=== PATIENT | male | born 1950 | race Caucasian/White ===

== ENCOUNTER → 2016-10-08 | Outpatient (CLI) | payer MEDICARE, OTHER ==
[~2016-10-08] MED LIST: CENTRUM SILVER1 CTB PO; COLON HEALTH; COLON HERBAL CL1 CAP PO; COZAAR 50MG50 MG/TAB PO; DESYREL 50MG50 MG PO; DOMPERIDONE10 MG/CAP PO; Domperidone PO; EXCEDRIN1 TAB PO; FLAGYL500 MG PO; LEVAQUIN 750MG750 M1 PO; LIPITOR20 MG PO; MELATONIN5 M1 PO; MIRAPEX0.25 MG PO; MOBIC 7.5MG7.5 MG PO; MULTIPLE VITAMI1 TA5 PO; NEXIUM 40MG40 MG PO; NORCO 325 MG-51 TAB PO; OCUVITE1 TA1 PO; REGLAN 10MG10 MG/TAB PO; TYLENOL 500MG500 MG PO; ULTRAM 50MG TAB50 MG PO
[2016-10-08 08:28] LABS: CALCIUM 9.6 mg/dL (8.4-10.2); CREATININE, serum 1.46 mg/dL (0.66-1.25); POTASSIUM 4.5 mmol/L (3.4-5.0)
== END ==
LOC: COL.RAD 07:05
PROVIDERS: Urology
DX: Z85.520 Personal history of malignant carcinoid tumor of kidney (principal); Z90.5 Acquired absence of kidney
CPT/HCPCS: Q9967

== ENCOUNTER → 2017-04-04 | Outpatient (CLI) | payer MEDICARE, OTHER ==
[~2017-04-04] MED LIST changes: +DEXILANT60 MG PO; +FERROUS SU325 MG/TAB PO; +FOLIC ACID 40400 MCG PO; +MOMETASONE NAS; +VITAMIN C500 MG PO; +[UNRECOGNIZED DRUG - OTHER] NAS
[2017-04-04 10:22] LABS: CREATININE, serum 1.49 mg/dL (0.66-1.25)
[2017-04-04 10:54] LABS: PSA-TOTAL 2.97 ng/mL (0-4)
== END ==
LOC: COL.RAD 09:18
PROVIDERS: Urology
DX: C64.9 Malignant neoplasm of unspecified kidney, except renal pelvis (principal); N28.1 Cyst of kidney, acquired; N40.0 Benign prostatic hyperplasia without lower urinary tract symptoms; Z85.520 Personal history of malignant carcinoid tumor of kidney; Z90.5 Acquired absence of kidney
CPT/HCPCS: G0103; Q9967

== ENCOUNTER 2017-05-10 09:49 | Inpatient (IN) | payer MEDICARE, OTHER ==
[~2017-05-10] VITALS: Ht 162.6 cm; Wt 77.3 kg
[~2017-05-10 09:49] MED LIST changes: -DEXILANT60 MG PO; -FERROUS SU325 MG/TAB PO; -FOLIC ACID 40400 MCG PO; -MOMETASONE NAS; -REGLAN 10MG10 MG/TAB PO; -ULTRAM 50MG TAB50 MG PO; -VITAMIN C500 MG PO; -[UNRECOGNIZED DRUG - OTHER] NAS
[2017-06-20] MEDS ORDERED: ULTRAM 50MG TAB50 MG PO (10:00)
[2017-06-20] MEDS ORDERED: REGLAN 10MG10 MG/TAB PO (10:11)
[2017-06-21] VITALS (14 sets, daily range): BP systolic 90–153; BP diastolic 51–89; PULSE 50–109; TEMP 97–98.6
[2017-06-21] MEDS ORDERED: DEXILANT60 MG PO (03:31)
[2017-06-21] MEDS ORDERED: FOLIC ACID 40400 MCG PO (05:50)
[2017-06-21] MEDS ORDERED: FERROUS SU325 MG/TAB PO (05:50)
[2017-06-21] MEDS ORDERED: VITAMIN C500 MG PO (05:51)
[2017-06-21] MEDS ORDERED: MOMETASONE NAS (06:02)
[2017-06-21] MEDS ORDERED: [UNRECOGNIZED DRUG - OTHER] NAS (06:02)
[2017-06-22 03:32] VITALS: BP 95/59; PULSE 86; TEMP 98.1
[2017-06-22 04:22] LABS: HEMATOCRIT 30.7 % (42.0-52.0); HEMOGLOBIN 10.3 g/dl (13.5-18.0)
[2017-06-22 08:15] VITALS: BP 109/62; PULSE 71; TEMP 98.1
[2017-06-22 11:47] VITALS: BP 106/82; PULSE 93; TEMP 98.4
[2017-06-22 16:19] VITALS: BP 121/71; PULSE 99; TEMP 98.5
[2017-06-22 19:30] VITALS: BP 120/82; PULSE 68; TEMP 98.1
[2017-06-23 00:10] VITALS: BP 99/67; PULSE 113; TEMP 98.8
[2017-06-23 03:30] VITALS: BP 133/71; PULSE 101; TEMP 98.3
[2017-06-23 07:32] LABS: HEMATOCRIT 33.5 % (42.0-52.0); HEMOGLOBIN 11.2 g/dl (13.5-18.0)
[2017-06-23 08:02] VITALS: BP 134/85; PULSE 110; TEMP 98.5
[2017-06-23 12:19] VITALS: BP 130/78; PULSE 111; TEMP 98.8
== END 2017-06-23 14:15 | disposition home or self-care (01) | DRG 470 ==
LOC: JCC 06-21 05:07
PROVIDERS: Orthopaedic Surgery
PROC: 0SRB0JA Replacement of Left Hip Joint with Synthetic Substitute, Uncemented, Open Approach (ICD-10-PCS; principal; 2017-06-21 07:30)
DX: M16.12 Unilateral primary osteoarthritis, left hip (principal); Z85.528 Personal history of other malignant neoplasm of kidney
CPT/HCPCS: A4315; A9284; C1713; C1776; J0690; J1100; J2250; J2270; J2405; J2704; J3010; J7120

== ENCOUNTER → 2017-05-30 | Outpatient (CLI) | payer MEDICARE, OTHER ==
[~2017-05-30] MED LIST changes: +DEXILANT60 MG PO; +FERROUS SU325 MG/TAB PO; +FOLIC ACID 40400 MCG PO; +MOMETASONE NAS; +REGLAN 10MG10 MG/TAB PO; +ULTRAM 50MG TAB50 MG PO; +VITAMIN C500 MG PO; +[UNRECOGNIZED DRUG - OTHER] NAS
[2017-05-30 14:57] LABS: HIV 1/2 Antibodies Non-Reactive; HIV-1p24 Antigen Non-Reactive
== END ==
LOC: COL.LAB 13:39
PROVIDERS: Orthopaedic Surgery
DX: Z01.812 Encounter for preprocedural laboratory examination (principal); M16.9 Osteoarthritis of hip, unspecified

== ENCOUNTER 2019-01-20 21:42 | Inpatient (IN) | payer MEDICARE, OTHER ==
[~2019-01-20] VITALS: Ht 165.1 cm; Wt 77.4 kg
[2019-01-20 22:08] LABS: BASO # 0.1 (0.0-0.2); BASO % 0.5 % (0.0-2.0); EOS # 0.3 (0.0-0.7); EOS % 2.3 % (0-4.0); GRAN # 9.8 (1.4-6.5); GRAN % 77.4 % (42.2-75.2); HEMATOCRIT 41.6 % (42.0-52.0); LYMPH # 1.4 (1.2-3.4); LYMPH % 11.2 % (20.0-51.0); MEAN CELL VOLUME 95 fl (80.0-100.0); MEAN CORPUSCULAR HEMOGLOBIN 32 pg (27.0-31.0); MEAN CORPUSCULAR HGB CONC 34 g/dl (33.0-37.0); MEAN PLATELET VOLUME 9.1 fl (7.4-10.4); MONO % 8.2 % (1.7-9.3); PLATELET COUNT 253 K/mm3 (130-400); RED BLOOD COUNT 4.39 M/mm3 (4.20-5.60); REDCELL DISTRIBUTION WIDTH-CV 13.4 % (11.5-14.5)
[2019-01-20 22:16] LABS: PROTHROMBIN TIME 11.1 SECONDS (9.7-12.8)
[2019-01-20 22:18] LABS: ALANINE AMINOTRANSFERASE 28 U/L (21-72); ALBUMIN 4.3 gm/dL (3.5-5.0); ALKALINE PHOSPHATASE 101 U/L (50-136); ANION GAP 10 mmol/L (7-16); AST,SGOT 35 U/L (15-37); BILIRUBIN,TOTAL 0.4 mg/dL (0.0-1.0); BLOOD UREA NITROGEN 33 mg/dL (9-20); CALCIUM 9.4 mg/dL (8.4-10.2); CARBON DIOXIDE 27 mmol/L (22-30); CHLORIDE 102 mmol/L (98-107); CREATININE, serum 1.52 (0.66-1.25); GLUCOSE 113 mg/dL (74-106); LIPASE 85 U/L (23-300); POTASSIUM 4.6 mmol/L (3.4-5.0); SODIUM 138 mmol/L (137-145); TOTAL PROTEIN 7.5 gm/dL (6.4-8.2)
[2019-01-20 22:31] LABS: TROPONIN-I < 0.012 ng/mL (0.000-0.035)
[2019-01-20 23:42] LABS: C-REACTIVE PROTEIN 0.5 mg/dL (0.0-0.9)
[2019-01-21 03:27] VITALS: BP 116/78; PULSE 97; TEMP 97.9
--- NOTE | 2019-01-21 03:44 | NUR ---
PT ADMITTED TO FLOOR AT THIS TIME. INSTRUCTED ACCOUNTS PAYABLE LEAD LIGHT. AMBULATED TO BATHROOM WELL WITHOUT ASSITANCE, STEADY ON FEET.
--- NOTE | 2019-01-21 06:54 | NUR ---
PT HAS BEEN LAYING IN BED SINCE ADMISSION. NO ISSUES OR CONSERNS VOICED.
[2019-01-21 07:49] LABS: BASO % 0.4 % (0.0-2.0); EOS # 0.1 (0.0-0.7); EOS % 1.4 % (0-4.0); GRAN # 5.8 (1.4-6.5); GRAN % 74.4 % (42.2-75.2); HEMATOCRIT 37.7 % (42.0-52.0); HEMOGLOBIN 12.5 g/dl (13.5-18.0); LYMPH % 12.7 % (20.0-51.0); MEAN CELL VOLUME 95 fl (80.0-100.0); MEAN CORPUSCULAR HEMOGLOBIN 32 pg (27.0-31.0); MEAN CORPUSCULAR HGB CONC 33 g/dl (33.0-37.0); MONO # 0.8 (0.1-0.6); MONO % 10.8 % (1.7-9.3); PLATELET COUNT 208 K/mm3 (130-400); RED BLOOD COUNT 3.95 M/mm3 (4.20-5.60); REDCELL DISTRIBUTION WIDTH-CV 13.7 % (11.5-14.5)
[2019-01-21 07:58] LABS: CALCIUM 8.7 mg/dL (8.4-10.2); CHOLESTEROL RISK RATIO 2.4; CREATININE, serum 1.38 (0.66-1.25); POTASSIUM 4.3 mmol/L (3.4-5.0)
--- NOTE | 2019-01-21 08:29 | NUR ---
Pt is awake an A/Ox4, resting in bed. He states he is having 2-3/10 pain in his chest. States the pain gets worse with inspiration. Saline lock to right AC is free of complications. Pt is up as tolerated in room. Pt denies any other needs.
[2019-01-21 08:31] VITALS: BP 114/84; PULSE 63; TEMP 97.7
--- NOTE | 2019-01-21 10:38 | NUR ---
Pt is sleeping soundly in bed.
[2019-01-21 13:12] VITALS: BP 124/85; PULSE 103; TEMP 97.8
[2019-01-21 16:08] VITALS: BP 127/78; PULSE 104; TEMP 98.5
--- NOTE | 2019-01-21 16:52 | NUR ---
Pt has had an overall uneventful shift. He continues to report 2-3/10 to his chest. Denies needing any pain medication for this. Updated on plan of care, including scheduled lexiscan for AM; expressed understanding. Denies any other needs.
[2019-01-21 19:12] VITALS: BP 115/80; PULSE 96; TEMP 98.3
--- NOTE | 2019-01-21 19:15 | NUR ---
Patient resting in bed, c/o chest pain 11/12, this has been continuous all day. Will given tramadol, pt would like to try this. Alert and oriented x4. Assessment ocmpleted- lungs clear, abdominal sounds active, pulses +3, cap refill >3 seconds, independent in room. No other needs at this time.
[2019-01-21 23:29] VITALS: BP 121/83; PULSE 95; TEMP 98
[2019-01-22] VITALS (10 sets, daily range): BP systolic 97–135; BP diastolic 67–88; PULSE 89–111; TEMP 97.8–98.6
--- NOTE | 2019-01-22 05:56 | NUR ---
Pt slept most of the night, chest pain rated at 2/10 all night, was relieved by tramadol given at beginning of shift. VSS. No needs at this time.
[2019-01-22 06:21] LABS: BASO % 0.6 % (0.0-2.0); EOS # 0.2 (0.0-0.7); EOS % 2.5 % (0-4.0); GRAN % 62.8 % (42.2-75.2); HEMATOCRIT 39.4 % (42.0-52.0); HEMOGLOBIN 13.1 g/dl (13.5-18.0); LYMPH # 1.6 (1.2-3.4); LYMPH % 24.3 % (20.0-51.0); MEAN CELL VOLUME 94 fl (80.0-100.0); MEAN CORPUSCULAR HEMOGLOBIN 31 pg (27.0-31.0); MEAN CORPUSCULAR HGB CONC 33 g/dl (33.0-37.0); MONO # 0.6 (0.1-0.6); MONO % 9.5 % (1.7-9.3); PLATELET COUNT 220 K/mm3 (130-400); RED BLOOD COUNT 4.19 M/mm3 (4.20-5.60); REDCELL DISTRIBUTION WIDTH-CV 13.4 % (11.5-14.5)
[2019-01-22 06:36] LABS: CALCIUM 9.5 mg/dL (8.4-10.2); CREATININE, serum 1.34 (0.66-1.25); POTASSIUM 4.1 mmol/L (3.4-5.0)
--- NOTE | 2019-01-22 07:26 | NUR ---
report given to EYAL Green. Pt has no needs at this time.
--- NOTE | 2019-01-22 07:30 | NUR ---
Patient is resting in bed, awake and alert. Denies having pain right now and does state to nursing that he is having his stress test and understands what will happen during test. Did take morning medications with a small sip of water. No other needs verbalized. Call light is within reach.
--- NOTE | 2019-01-22 09:53 | NUR ---
Patient is currently having cardiac stress test at this time.
--- NOTE | 2019-01-22 10:32 | NUR ---
Patient has returned from stress test. Reqests to take a shower, INT site wrapped, can independently shower. Will notify staff when done so tele can be re initiated.
--- NOTE | 2019-01-22 11:56 | NUR ---
TYLER met with the patient to discuss discharge plan. The patient lives in [place] with his , David. He reports independence with ADLs and has a cane and walker. The patient's PCP is Dr. Lilo Go and he receives his medications at the [facility]. He reports no difficulties obtaining his meds. The patient does not have advanced directives in EMR, but he states that his PCP's office should have a copy. SW contacted his PCP's office and requested a copy. The patient plans to return home with his upon discharge. No additional needs at this time.
--- NOTE | 2019-01-22 17:27 | NUR ---
Patient is resting in bed, had PRN ultram earlier due to complaint of headache. Did state pain has improved. Denies any further needs. Call light is within reach.
--- NOTE | 2019-01-22 21:15 | NUR ---
Pt resting in bed watching TV, no C/O pain at this time, shift assessments complete, left Pt call light in reach, bed in lowest position.
[2019-01-23] VITALS (16 sets, daily range): BP systolic 104–129; BP diastolic 69–89; PULSE 87–105; TEMP 97.3–97.8
[2019-01-23 03:58] LABS: HEMATOCRIT 41.9 % (42.0-52.0); HEMOGLOBIN 14.2 g/dl (13.5-18.0); MEAN CELL VOLUME 93 fl (80.0-100.0); MEAN CORPUSCULAR HEMOGLOBIN 32 pg (27.0-31.0); MEAN CORPUSCULAR HGB CONC 34 g/dl (33.0-37.0); PLATELET COUNT 253 K/mm3 (130-400); RED BLOOD COUNT 4.51 M/mm3 (4.20-5.60); REDCELL DISTRIBUTION WIDTH-CV 13.4 % (11.5-14.5)
[2019-01-23 04:05] LABS: PROTHROMBIN TIME 11.5 SECONDS (9.7-12.8)
[2019-01-23 04:10] LABS: CALCIUM 9.8 mg/dL (8.4-10.2); CREATININE, serum 1.46 (0.66-1.25); PHOSPHOROUS 4.9 mg/dL (2.5-4.5); POTASSIUM 4.5 mmol/L (3.4-5.0)
--- NOTE | 2019-01-23 05:18 | NUR ---
Pt slept well during the night, Pt had a moment of tachycardia 200+ during the night, VS were WNL when checked shortly after, technician telecommunication systems physician notified.
--- NOTE | 2019-01-23 08:33 | NUR ---
Patient resting in bed with brother at bedside. Patient "slept ok" last night. Lung sounds clear throughout, heart sounds normal, pulses strong bilaterally. No edema noted. Bowel sounds present. Patient denies chest pain, dizziness, SOB, palpitations. Heart cath scheduled for 1315 this afternoon. Patient has been NPO since midnight. Consent signed. Patient verbalizes understanding of procedure. Call light within reach.
--- NOTE | 2019-01-23 12:41 | NUR ---
Initial visit; Patient thanked [employer]eder for stopping and offering God's blessings.
--- NOTE | 2019-01-23 15:00 | NUR ---
Patient down for heart cath procedure.
--- NOTE | 2019-01-23 15:28 | NUR ---
SEE MERGE REPORT FOR MEDICATION ADMINISTRATION AND INTRA/POST SEDATION ASSESSMENTS. ETCO2 CONNECTED BUT NOT UTILIZED PER WAX CUTTER.
--- NOTE | 2019-01-23 16:15 | NUR ---
Patient back from heart cath procedure. Flat time 4hrs. Rt femoral site is CDI with tegaderm covering. Slight redness on outer edges of tegaderm. Patient denies pain, tolerating liquids. Bed is flat, HOB at 15 degrees. Post op monitoring in place. Call light within reach.
--- NOTE | 2019-01-23 16:29 | NUR ---
Patient laying flat in bed, HOB at 15 degrees. Tolerating liquids. Denies pain. Pulses equal and strong. Flat time from 1614 to 2014. Rt femoral site is CDI, no hematoma.
--- NOTE | 2019-01-23 16:31 | NUR ---
Patient laying flat in bed. HOB at 15 degrees. Patient denies pain, site is CDI, no hematoma. Patient has no complaints. Call light within reach.
--- NOTE | 2019-01-23 18:12 | NUR ---
PATIENT IN BED, FLAT, HOB AT 10 DEGREES. PATIENT DENIES PAIN, RT FEMORAL SITE IS CDI, NO HEMATOMA, SOFT, TEGADERM IN PLACE. PULSES STRONG BILATERALLY. CALL LIGHT WITHIN REACH.
--- NOTE | 2019-01-23 19:24 | NUR ---
PATIENT LAYING IN BED, REPORT GIVEN TO EYAL DEL ROSARIO. RT FEMORAL SITE CDI, NO HEMATOMA. PATIENT HAS NO COMPLAINTS OF PAIN. CALL LIGHT WITHIN REACH. VSS.
--- NOTE | 2019-01-23 19:54 | NUR ---
Patient resting in bed, flat time until 2014. Assessment completed- lungs clear, abdominal sounds active, pulses +3, cap refill <3 seconds, denies pain. Right femoral site C/D/I, VSS. No further needs at this time.
--- NOTE | 2019-01-23 20:20 | NUR ---
Flat time over for patient, pt now sitting up and eating dinner. Femoral site C/D/I, no complaints of pain, VSS.
[2019-01-24 00:03] VITALS: BP 95/68; PULSE 99; TEMP 98.3
[2019-01-24 00:04] VITALS: BP 95/68; PULSE 98
[2019-01-24 03:42] VITALS: BP 117/72; PULSE 88
--- NOTE | 2019-01-24 05:05 | NUR ---
Pt slept for most of the night, VSS. Some pain this morning after ambulating to restroom- controlled with tramadol. Right femoral site C/D/I. No needs at this time.
--- NOTE | 2019-01-24 06:22 | NUR ---
New iv site started on patient, new site to right forearm. Old iv site- outdated x3 days, removed from right ac.
--- NOTE | 2019-01-24 07:01 | NUR ---
Report given to EYAL Be.
[2019-01-24 07:27] VITALS: BP 121/88; PULSE 88; TEMP 98.5
[2019-01-24 08:23] LABS: BASO # 0.1 (0.0-0.2); BASO % 0.8 % (0.0-2.0); EOS # 0.2 (0.0-0.7); EOS % 3.3 % (0-4.0); GRAN # 4.3 (1.4-6.5); GRAN % 63.9 % (42.2-75.2); HEMOGLOBIN 13.9 g/dl (13.5-18.0); LYMPH # 1.5 (1.2-3.4); LYMPH % 23.1 % (20.0-51.0); MEAN CELL VOLUME 93 fl (80.0-100.0); MEAN CORPUSCULAR HEMOGLOBIN 32 pg (27.0-31.0); MEAN CORPUSCULAR HGB CONC 34 g/dl (33.0-37.0); MEAN PLATELET VOLUME 9.1 fl (7.4-10.4); MONO # 0.6 (0.1-0.6); MONO % 8.6 % (1.7-9.3); PLATELET COUNT 283 K/mm3 (130-400); RED BLOOD COUNT 4.41 M/mm3 (4.20-5.60); REDCELL DISTRIBUTION WIDTH-CV 13.2 % (11.5-14.5)
[2019-01-24 08:40] LABS: CALCIUM 9.5 mg/dL (8.4-10.2); CREATININE, serum 1.51 (0.66-1.25); POTASSIUM 4.3 mmol/L (3.4-5.0)
--- NOTE | 2019-01-24 09:30 | NUR ---
Patient laying in bed reading. Assessment complete. Lung sounds clear throughout, heart sounds normal. Bowel sounds present X4. Pulses strong bilaterally. No edema noted. Patient denies dizziness, SOB, palpitations. No N/V, tolerating foods well, "eating like a pig" per patient. Rt femoral site from heart cath is CDI, no redness, drainage or hematoma noted. Patient denies pain from site. Call light within reach.
[2019-01-24 11:06] VITALS: BP 114/89; PULSE 90; TEMP 97.9
[2019-01-24] MEDS ORDERED: COREG 6.256.25 MG/TA PO (14:10)
[2019-01-24] MEDS ORDERED: NITROSTAT0.4 MG/TAB SL (14:10)
[2019-01-24] MEDS ORDERED: ASPIRIN 81M81 MG/TA2 PO (14:10)
[2019-01-24] MEDS ORDERED: LASIX 20MG TABL20 MG PO (14:11)
[2019-01-24] MEDS ORDERED: K-TAB20 PO (14:11)
--- NOTE | 2019-01-24 16:33 | NUR ---
Patient has had an uneventful day. No complications with heart cath site. Site is CDI, no hematoma. Patient denies chest pain, SOB. Discharge instructions were reviewed. Femoral heart cath site care and limitation instructions reviewed and discussed. All questions answered. Patient was escorted out by this nurse. Brother drove him home. RFA IV discontinued. Catheter tip intact, no redness or drainage.
== END 2019-01-24 16:20 | disposition home or self-care (01) | DRG 287 ==
LOC: COL.ER 21:42 → MEDICAL 01-21 01:57
PROVIDERS: Emergency Medicine; Hospitalist; Nurse Practitioner; Physician Assistant; ADMIT Internal Medicine
PROC: B2111ZZ Fluoroscopy of Multiple Coronary Arteries using Low Osmolar Contrast (ICD-10-PCS; principal; 2019-01-23)
DX: I42.0 Dilated cardiomyopathy (principal); N17.9 Acute kidney failure, unspecified; I13.0 Hypertensive heart and chronic kidney disease with heart failure and stage 1 through stage 4 chronic kidney disease, or unspecified chronic kidney disease; I50.22 Chronic systolic (congestive) heart failure; N18.9 Chronic kidney disease, unspecified; E78.5 Hyperlipidemia, unspecified; Z85.520 Personal history of malignant carcinoid tumor of kidney; I95.9 Hypotension, unspecified; K31.84 Gastroparesis
CPT/HCPCS: 99232-AI; 99239; A9500; C1760; C1894; G0378; J1644; J2250; J3010; J7030; Q9967

== ENCOUNTER 2019-09-21 13:26 | Outpatient (RCR) | payer MEDICARE, OTHER ==
[~2019-09-21 13:26] MED LIST changes: +ASPIRIN 81M81 MG/TA2 PO; +COREG 6.256.25 MG/TA PO; +K-TAB20 PO; +LASIX 20MG TABL20 MG PO; +NITROSTAT0.4 MG/TAB SL
== END 2019-09-23 | disposition home or self-care (01) ==
LOC: COL.CR
DX: I50.9 Heart failure, unspecified (principal)

== ENCOUNTER 2019-10-08 14:14 | Outpatient (RCR) | payer MEDICARE, OTHER | END 2019-10-10 13:16 | disposition home or self-care (01) | LOC: COL.CR 14:14 | DX: I50.9 Heart failure, unspecified (principal) ==

== ENCOUNTER 2019-10-13 16:22 | Emergency (ER) | payer MEDICARE, OTHER ==
[~2019-10-13] VITALS: Ht 165.1 cm; Wt 84.1 kg
[2019-10-13 16:38] VITALS: BP 132/63; PULSE 65
[2019-10-13] MEDS ORDERED: NORCO 325 MG-51 TAB PO (18:56)
[2019-10-13 19:15] VITALS: TEMP 98.3
== END 2019-10-13 19:15 | disposition home or self-care (01) ==
LOC: COL.ER 16:22
DX: S20.211A Contusion of right front wall of thorax, initial encounter (principal); R40.2412 Glasgow coma scale score 13-15, at arrival to emergency department; Z79.82 Long term (current) use of aspirin; W00.0XXA Fall on same level due to ice and snow, initial encounter; Y92.009 Unspecified place in unspecified non-institutional (private) residence as the place of occurrence of the external cause

== ENCOUNTER 2019-12-12 11:59 | Outpatient (RCR) | payer SELFPAY | END 2020-01-08 | disposition still patient (30) | LOC: COL.CR | DX: Z02.89 Encounter for other administrative examinations (principal) ==

== ENCOUNTER 2020-09-12 07:44 | Day surgery (SDC) | payer MEDICARE, OTHER ==
[~2020-09-12] VITALS: Ht 165.1 cm; Wt 88.0 kg
[2020-09-12 08:17] VITALS: BP 122/76; PULSE 70; TEMP 97.6
--- NOTE | 2020-09-12 08:24 | NUR ---
RECEIVED FLEETS ENEMA AND TOLERATED WELL.
--- NOTE | 2020-09-12 08:28 | NUR ---
AMBULATED BACK TO BED. CALL LIGHT IN REACH
[2020-09-12] MEDS ORDERED: PROTONIX 40MG T40 MG PO (08:36)
[2020-09-12] MEDS ORDERED: colon health PO (08:37)
[2020-09-12] MEDS ORDERED: PROBIOTIC FORMU1 CAP PO (08:38)
[2020-09-12] MEDS ORDERED: OCUVITE1 TA1 PO (08:39)
[2020-09-12] MEDS ORDERED: CENTRUM SILVER1 CTB PO (08:39)
[2020-09-12] MEDS ORDERED: NATURAL IRON65 MG PO (08:43)
[2020-09-12] MEDS ORDERED: REGLAN 5MG T5 MG/TAB PO (08:44)
[2020-09-12] MEDS ORDERED: LASIX 20MG TABL20 MG PO (08:45)
[2020-09-12] MEDS ORDERED: COREG 6.256.25 MG/TA PO (08:46)
[2020-09-12] MEDS ORDERED: ASPIRIN 81M81 MG/TA2 PO (08:47)
[2020-09-12] MEDS ORDERED: NITROSTAT0.4 MG/TAB SL (08:47)
[2020-09-12] MEDS ORDERED: K-DUR20 MEQ PO (08:48)
[2020-09-12] MEDS ORDERED: MIRAPEX0.5 MG PO (08:51)
[2020-09-12] MEDS ORDERED: NORCO 325 MG-51 TAB PO (10:52)
[2020-09-12] MEDS ORDERED: LIDO2%JEL30 TOP (10:53)
[2020-09-12 11:22] VITALS: BP 126/74; PULSE 76; TEMP 97.1
--- NOTE | 2020-09-12 11:22 | NUR ---
TO RM 7 PER CART FROM PACU. ALERT ORIENTED X3, TALKING TO STAFF. DRINKING WATER. DENIES PAIN AND NAUSEA.
[2020-09-12 11:37] VITALS: BP 122/76; PULSE 61
--- NOTE | 2020-09-12 11:37 | NUR ---
RECEIVED CHOCOLATE PUDDING.
[2020-09-12 11:50] VITALS: BP 126/84; PULSE 81
--- NOTE | 2020-09-12 12:00 | NUR ---
AMBULATED TO BATHROOM. PACKING REMOVED AND RECEIVED SITZ BATH. QUARTER SIZED BLOODY SEDIMENT NOTED IN SITS BATH. NEW 4X4 PLACED OVER RECTUM AND MESH PANTIES PLACED.
--- NOTE | 2020-09-12 12:15 | NUR ---
VOIDED AND AMBULATED BACK TO .
--- NOTE | 2020-09-12 12:30 | NUR ---
RECEIVED DISCHARGE INSTRUCTIONS AND VERBALIZED UNDERSTANDING. DISCONTINUED IV AND INT- CATHETER INTACT PATIENT CALLED FOR RIDE HOME.
--- NOTE | 2020-09-12 12:50 | NUR ---
DISCHARGED PER WC BY NURSING STAFF TO PRIVATE CAR IN CARE OF
== END 2020-09-12 13:09 | disposition home or self-care (01) ==
LOC: SDCO 07:44
DX: K64.8 Other hemorrhoids (principal); K62.5 Hemorrhage of anus and rectum; Z79.82 Long term (current) use of aspirin; Z85.828 Personal history of other malignant neoplasm of skin; K21.9 Gastro-esophageal reflux disease without esophagitis; G47.33 Obstructive sleep apnea (adult) (pediatric); Z90.49 Acquired absence of other specified parts of digestive tract; Z96.642 Presence of left artificial hip joint; Z90.5 Acquired absence of kidney; Z88.1 Allergy status to other antibiotic agents; Z88.8 Allergy status to other drugs, medicaments and biological substances
CPT/HCPCS: J0690; J2405; J2704; J3010; J7030

== ENCOUNTER 2020-12-02 10:27 | Day surgery (SDC) | payer MEDICARE, OTHER ==
[~2020-12-02] VITALS: Ht 165.1 cm; Wt 88.5 kg
[~2020-12-02 10:27] MED LIST changes: +K-DUR20 MEQ PO; +LIDO2%JEL30 TOP; +MIRAPEX0.5 MG PO; +NATURAL IRON65 MG PO; +PROBIOTIC FORMU1 CAP PO; +PROTONIX 40MG T40 MG PO; +REGLAN 5MG T5 MG/TAB PO; +colon health PO
[2020-12-02 11:27] LABS: BASO # 0.1 (0.0-0.2); BASO % 0.9 % (0.0-2.0); EOS # 0.5 (0.0-0.7); EOS % 7.2 % (0-4.0); GRAN # 3.9 (1.4-6.5); GRAN % 58.4 % (42.2-75.2); HEMATOCRIT 40.4 % (42.0-52.0); HEMOGLOBIN 13.6 g/dl (13.5-18.0); LYMPH # 1.6 (1.2-3.4); LYMPH % 23.5 % (20.0-51.0); MEAN CELL VOLUME 92 fl (80.0-100.0); MEAN CORPUSCULAR HEMOGLOBIN 31 pg (27.0-31.0); MEAN CORPUSCULAR HGB CONC 34 g/dl (33.0-37.0); MEAN PLATELET VOLUME 8.5 fl (7.4-10.4); MONO # 0.6 (0.1-0.6); MONO % 9.1 % (1.7-9.3); PLATELET COUNT 279 K/mm3 (130-400); RED BLOOD COUNT 4.37 M/mm3 (4.20-5.60); REDCELL DISTRIBUTION WIDTH-CV 13.1 % (11.5-14.5)
[2020-12-02 11:32] VITALS: BP 136/73; PULSE 63; TEMP 98.4
[2020-12-02] MEDS ORDERED: GLUCOSAMIN 500 PO (11:56)
[2020-12-02 13:06] VITALS: BP 120/75; PULSE 67
--- NOTE | 2020-12-02 13:06 | NUR ---
Patient returns to room 5 per cart from surgery accompanied by Naya BIRCH and Jose ALVARADO. Patient is awake and alert. Temp 97.2 and room air sats 97%. Drinking orange juice. Denies pain. Gauze dressing to rectal area dry. IV fluids infusing and siderails up x2. Call light in reach.
[2020-12-02] MEDS ORDERED: LIDO2%JEL30 TOP (13:07)
[2020-12-02] MEDS ORDERED: NORCO 325 MG-51 TAB PO (13:07)
[2020-12-02 13:21] VITALS: BP 140/72; PULSE 65
--- NOTE | 2020-12-02 13:21 | NUR ---
Resting and denies pain or nausea.
[2020-12-02 13:36] VITALS: BP 125/63; PULSE 59
--- NOTE | 2020-12-02 13:36 | NUR ---
Assisted up to the bathroom and gait steady. Voids and returns to room.
[2020-12-02 13:51] VITALS: BP 127/80; PULSE 62
--- NOTE | 2020-12-02 13:51 | NUR ---
Sipping on juice. Continues to deny pain or nausea.
[2020-12-02 14:06] VITALS: BP 120/78; PULSE 63
--- NOTE | 2020-12-02 14:06 | NUR ---
Continues to rest and denies pain.
--- NOTE | 2020-12-02 14:15 | NUR ---
Assisted into the bathroom and does sitz bath. Packing removed.
--- NOTE | 2020-12-02 14:50 | NUR ---
Dismissal instructions given and voices understanding of these. IV discontinued and site is free of redness. Patient dresses self.
--- NOTE | 2020-12-02 14:55 | NUR ---
Patient dismissed to home driven by spouse and assisted into vehicle by this RN with instructions in hand.
== END 2020-12-02 14:57 | disposition home or self-care (01) ==
LOC: SDCO 10:27
PROVIDERS: Surgery
DX: K62.6 Ulcer of anus and rectum (principal); K64.8 Other hemorrhoids; K64.4 Residual hemorrhoidal skin tags; I11.0 Hypertensive heart disease with heart failure; I50.9 Heart failure, unspecified; G47.33 Obstructive sleep apnea (adult) (pediatric); K21.9 Gastro-esophageal reflux disease without esophagitis; E78.00 Pure hypercholesterolemia, unspecified; D64.9 Anemia, unspecified; Z20.822 Contact with and (suspected) exposure to COVID-19; G25.81 Restless legs syndrome; I08.0 Rheumatic disorders of both mitral and aortic valves; Z79.82 Long term (current) use of aspirin; Z85.828 Personal history of other malignant neoplasm of skin; Z79.899 Other long term (current) drug therapy; Z85.528 Personal history of other malignant neoplasm of kidney; Z90.5 Acquired absence of kidney; E78.5 Hyperlipidemia, unspecified
CPT/HCPCS: J2704; J3010; J7120

== ENCOUNTER → 2021-04-14 | Outpatient (CLI) | payer MEDICARE, OTHER ==
[~2021-04-14] MED LIST changes: +GLUCOSAMIN 500 PO
== END ==
LOC: COL.RAD 04-13 08:15
DX: Z85.528 Personal history of other malignant neoplasm of kidney (principal); Z90.5 Acquired absence of kidney

== ENCOUNTER → 2022-04-19 | Outpatient (CLI) | payer MEDICARE, OTHER | LOC: COL.RAD 06:46 | DX: Z85.528 Personal history of other malignant neoplasm of kidney (principal); Z90.5 Acquired absence of kidney | CPT/HCPCS: Q9967 ==

== ENCOUNTER 2023-08-03 14:04 | Outpatient (CLI) | payer MEDICARE, OTHER ==
[~2023-08-03] VITALS: Ht 165.1 cm; Wt 88.1 kg
[2023-08-03 14:09] LABS: BASO # 0.1 K/mm3 (0.0-0.2); BASO % 1.2 % (0.0-2.0); EOS # 0.8 K/mm3 (0.0-0.7); EOS % 10.4 % (0.0-4.0); GRAN # 4.2 K/mm3 (1.4-6.5); GRAN % 55.3 % (42.2-75.2); HEMATOCRIT 40.3 % (42.0-52.0); LYMPH # 1.9 K/mm3 (1.2-3.4); LYMPH % 25.4 % (20.0-51.0); MEAN CELL VOLUME 96 fl (80.0-100.0); MEAN CORPUSCULAR HEMOGLOBIN 31 pg (27-31); MEAN CORPUSCULAR HGB CONC 32 g/dl (33.0-37.0); MEAN PLATELET VOLUME 8.8 fl (7.4-10.4); MONO # 0.6 K/mm3 (0.1-0.6); MONO % 7.4 % (1.7-9.3); PLATELET COUNT 275 K/mm3 (130-400); RED BLOOD COUNT 4.21 M/mm3 (4.20-5.60); REDCELL DISTRIBUTION WIDTH-CV 13.2 % (11.5-14.5)
[2023-08-03 14:21] LABS: ALBUMIN 3.8 gm/dL (3.4-4.8); BILIRUBIN,TOTAL 0.3 mg/dL (0.2-1.2); CALCIUM 9.9 mg/dL (8.4-10.2); CREATININE, serum 1.49 mg/dL (0.72-1.25); POTASSIUM 4.3 mmol/L (3.5-4.5); TOTAL PROTEIN 7.6 gm/dL (6.2-8.1)
[2023-08-03 14:38] VITALS: BP 114/76; PULSE 67; TEMP 98
[2023-08-03] MEDS ORDERED: FLONASEALLERGY NS (15:47)
[2023-08-03] MEDS ORDERED: JARDIANCE10 PO (15:48)
[2023-08-03] MEDS ORDERED: ZEBETA 5MG5 MG PO (15:48)
[2023-08-03] MEDS ORDERED: LIALDA 1.2 GM1.2 GM PO (15:49)
[2023-08-03] MEDS ORDERED: COLESTID 1GM1 G PO (15:49)
[2023-08-03] MEDS ORDERED: DESYREL 50MG50 MG PO (15:50)
[2023-08-03] MEDS ORDERED: TYLENOL 325MG325 MG PO (15:50)
--- NOTE | 2023-08-03 16:01 | NUR ---
pt ambulated to [facility] following infusion. IV discontinued and pt vs remained within normal limits. pt observed for 30 minutes following this infusion as it was his first dose of the medication. pt free from concerns and complaints upon discharge.
== END 2023-08-03 16:02 | disposition home or self-care (01) ==
LOC: EUO 14:04
PROVIDERS: Internal Medicine Gastroenterology
DX: K51.90 Ulcerative colitis, unspecified, without complications (principal)
CPT/HCPCS: J1200; J2930; J3380; J7050

== ENCOUNTER 2023-09-15 14:47 | Outpatient (CLI) | payer MEDICARE, OTHER ==
[~2023-09-15] VITALS: Ht 165.1 cm; Wt 88.3 kg
[2023-09-15 14:18] VITALS: BP 127/65; PULSE 66; TEMP 98.2
[2023-09-15 14:18] LABS: BASO % 0.7 % (0.0-2.0); EOS # 0.3 K/mm3 (0.0-0.7); EOS % 5.7 % (0.0-4.0); GRAN # 3.1 K/mm3 (1.4-6.5); GRAN % 52.9 % (42.2-75.2); HEMATOCRIT 41.8 % (42.0-52.0); HEMOGLOBIN 13.5 g/dl (13.5-18.0); LYMPH # 1.7 K/mm3 (1.2-3.4); LYMPH % 29.6 % (20.0-51.0); MEAN CELL VOLUME 94 fl (80.0-100.0); MEAN CORPUSCULAR HEMOGLOBIN 30 pg (27-31); MEAN CORPUSCULAR HGB CONC 32 g/dl (33.0-37.0); MONO # 0.6 K/mm3 (0.1-0.6); MONO % 10.6 % (1.7-9.3); PLATELET COUNT 276 K/mm3 (130-400); RED BLOOD COUNT 4.45 M/mm3 (4.20-5.60); REDCELL DISTRIBUTION WIDTH-CV 12.8 % (11.5-14.5)
[2023-09-15 14:45] LABS: ALBUMIN 3.9 gm/dL (3.4-4.8); BILIRUBIN,TOTAL 0.3 mg/dL (0.2-1.2); CREATININE, serum 1.54 mg/dL (0.72-1.25); TOTAL PROTEIN 8.1 gm/dL (6.2-8.1)
[~2023-09-15 14:47] MED LIST changes: +COLESTID 1GM1 G PO; +FLONASEALLERGY NS; +JARDIANCE10 PO; +LIALDA 1.2 GM1.2 GM PO; +TYLENOL 325MG325 MG PO; +ZEBETA 5MG5 MG PO
--- NOTE | 2023-09-15 15:44 | NUR ---
PT TOLERATED ENTYVIO INFUSION WELL AND AMBULATED INDEPENDENTLY TO MAIN LOBBY FOLLOWING INFUSION. PT'S IV DISCONTINUED AND VS REMAINED WITHIN NORMAL LIMITS PT FREE FROM ACUTE CONCERNS AND COMPLAINTS AT TIME OF INFUSION. NEXT APPOINTMENT MADE.
== END 2023-09-15 15:46 | disposition home or self-care (01) ==
LOC: EUO 14:47
PROVIDERS: Internal Medicine Gastroenterology
DX: K51.90 Ulcerative colitis, unspecified, without complications (principal)
CPT/HCPCS: J1200; J2920; J3380; J7050

== ENCOUNTER → 2023-11-03 | Outpatient (CLI) | payer MEDICARE, OTHER ==
[~2023-11-03] MED LIST changes: +Iohexol 300 - 100 ML VIAL IV ONE; +NS 100 ML IV SCH
== END ==
LOC: COL.RAD 06:52
DX: Z85.528 Personal history of other malignant neoplasm of kidney (principal); Z90.5 Acquired absence of kidney
CPT/HCPCS: Q9967

== ENCOUNTER 2023-11-10 13:49 | Outpatient (CLI) | payer MEDICARE, OTHER ==
[~2023-11-10] VITALS: Ht 165.1 cm; Wt 88.4 kg
[~2023-11-10 13:49] MED LIST changes: -Iohexol 300 - 100 ML VIAL IV ONE; -NS 100 ML IV SCH
[2023-11-10 14:35] LABS: BASO % 0.6 % (0.0-2.0); EOS # 0.3 K/mm3 (0.0-0.7); EOS % 3.9 % (0.0-4.0); GRAN # 3.7 K/mm3 (1.4-6.5); GRAN % 57.4 % (42.2-75.2); HEMATOCRIT 38.3 % (42.0-52.0); HEMOGLOBIN 12.8 g/dl (13.5-18.0); LYMPH # 1.8 K/mm3 (1.2-3.4); MEAN CELL VOLUME 90 fl (80.0-100.0); MEAN CORPUSCULAR HEMOGLOBIN 30 pg (27-31); MEAN CORPUSCULAR HGB CONC 33 g/dl (33.0-37.0); MEAN PLATELET VOLUME 10.1 fl (7.4-10.4); MONO # 0.6 K/mm3 (0.1-0.6); MONO % 9.8 % (1.7-9.3); PLATELET COUNT 356 K/mm3 (130-400); RED BLOOD COUNT 4.27 M/mm3 (4.20-5.60); REDCELL DISTRIBUTION WIDTH-CV 13.8 % (11.5-14.5)
[2023-11-10 14:36] LABS: ALBUMIN 3.8 gm/dL (3.4-4.8); BILIRUBIN,TOTAL 0.4 mg/dL (0.2-1.2); CALCIUM 9.8 mg/dL (8.4-10.2); CREATININE, serum 1.7 mg/dL (0.72-1.25); POTASSIUM 3.9 mmol/L (3.5-4.5); TOTAL PROTEIN 7.4 gm/dL (6.2-8.1)
[2023-11-10] MEDS ORDERED: Vedolizumab 300 MG in NS 250 ML IV ONE (14:45)
[2023-11-10] MEDS ORDERED: diphenhydrAMINE 50 MG/ML 1 ML VIAL IV ONE (15:00)
[2023-11-10] MEDS ORDERED: methylPREDNISolone Sod Succ 40 MG/ML VIAL IV ONE (15:00)
[2023-11-10] MEDS ORDERED: Acetaminophen 500 MG TAB PO ONE (15:00)
[2023-11-10 15:15] VITALS: BP 116/70; PULSE 74; TEMP 98.8
== END 2023-11-10 16:10 | disposition home or self-care (01) ==
LOC: EUO 13:49
PROVIDERS: Internal Medicine Gastroenterology
DX: K51.90 Ulcerative colitis, unspecified, without complications (principal)
CPT/HCPCS: J1200; J2920; J3380; J7050

== ENCOUNTER 2024-04-26 13:21 | Outpatient (CLI) | payer MEDICARE, OTHER ==
[~2024-04-26] VITALS: Ht 165.1 cm; Wt 85.0 kg
[2024-04-26 13:55] LABS: BASO % 0.6 % (0.0-2.0); EOS # 0.5 K/mm3 (0.0-0.7); EOS % 7.8 % (0.0-4.0); GRAN # 3.3 K/mm3 (1.4-6.5); GRAN % 51.7 % (42.2-75.2); HEMATOCRIT 41.2 % (42.0-52.0); HEMOGLOBIN 13.6 g/dl (13.5-18.0); LYMPH % 31.5 % (20.0-51.0); MEAN CELL VOLUME 95 fl (80.0-100.0); MEAN CORPUSCULAR HEMOGLOBIN 31 pg (27-31); MEAN CORPUSCULAR HGB CONC 33 g/dl (33.0-37.0); MEAN PLATELET VOLUME 8.9 fl (7.4-10.4); MONO # 0.5 K/mm3 (0.1-0.6); MONO % 8.1 % (1.7-9.3); PLATELET COUNT 250 K/mm3 (130-400); RED BLOOD COUNT 4.35 M/mm3 (4.20-5.60); REDCELL DISTRIBUTION WIDTH-CV 13.7 % (11.5-14.5)
[2024-04-26 14:00] VITALS: BP 104/63; PULSE 74; TEMP 98.1
[2024-04-26 14:11] LABS: ALBUMIN 3.9 g/dL (3.4-4.8); BILIRUBIN,TOTAL 0.3 mg/dL (0.2-1.2); CALCIUM 9.8 mg/dL (8.4-10.2); CREATININE, serum 1.81 mg/dL (0.72-1.25); POTASSIUM 3.9 mEq/L (3.5-4.5); TOTAL PROTEIN 7.4 g/dl (6.2-8.1)
[2024-04-26] MEDS ORDERED: methylPREDNISolone Sod Succ 125 MG/2 ML VIAL IV ONE (14:15)
[2024-04-26] MEDS ORDERED: Vedolizumab 300 MG in NS 250 ML IV ONE (14:15)
[2024-04-26] MEDS ORDERED: diphenhydrAMINE 50 MG/ML 1 ML VIAL IV ONE (14:15)
[2024-04-26] MEDS ORDERED: Acetaminophen 500 MG TAB PO ONE (14:15)
== END 2024-04-26 15:20 | disposition home or self-care (01) ==
LOC: EUO 13:21
PROVIDERS: Internal Medicine Gastroenterology
DX: K51.90 Ulcerative colitis, unspecified, without complications (principal)
CPT/HCPCS: J1200; J2919; J3380; J7050